=== PATIENT | female | born 1965 | race Caucasian/White ===

== ENCOUNTER 2017-11-01 15:48 | Emergency (ER) | payer MEDICARE, OTHER ==
[~2017-11-01] VITALS: Ht 167.6 cm; Wt 68.0 kg
[~2017-11-01 15:48] MED LIST: ALBU90OI INH; AMOCLA400S PO; ASPI325EC PO; ATOR40TA PO; Ativan1 MG PO; Augmentin 875-1 EACH PO; Augmentin Xr 11 EACH PO; BENTYL10 MG PO; BENTYL20 MG PO; BENZ100A PO; BIRTH CONTROL; CHOL10002; CHOL10002 PO; CIPR500 PO; CLOP75 PO; CODGUAEL PO; CRUTCH USE; CYCL10; CYPR4 PO; DEPAKOTE; DESL5; DESL5 PO; DIAZ5 PO; DICMIS75EC; DICMIS75EC PO; DOXY100 PO; ESCI10 PO; ESCI20 PO; ESOM20; ESOM20 PO; FINA5 PO; FURO20; FURO20 PO; Flomax0.4 MG PO; GUAI600T33 PO; GUAPHELA; HYDACE10B PO; HYDACE5 PO; HYDR1TAB94 PO; KLOR-CON SPRIN10 MEQ PO; LANS15EC PO; LEVSOD50 PO; LO OVRAL; LO OVRAL BCP PO; LO OVRAL PO; LONG ACTING NA120 MG PO; LORA1 PO; MECL12.5 PO; META800 PO; MINO2.5 PO; MUCINEX; NAPR500 PO; NAPR550 PO; Norco 10-325 T1 EACH PO; OMEP20ER PO; OMEP40CA12 PO; ONDA4 PO; ONDA8 PO; ONDA8ODT MM; OXYACE5T PO; OXYC10ER PO; OXYC1TAB11 PO; OXYC5 PO; POTA10T PO; POTCHL10ER PO; POTCHL20ER PO; PROM25 PO; PROM25S PR; PROMETHAZINE; PSEU120ER PO; Percocet 5-3251 EACH PO; Prilosec Otc20 MG PO; QUIN324 PO; Qualaquin324 MG PO; ROBITUSSIN NIG118 ML PO; RXLORA1 PO; RXMETA800 PO; RXNAPNA550 PO; SACC250C; SCOPTP TOP; SPIR50 PO; SUDAFED 12-HOU120 MG; TOPI100; TOPI100 PO; TOPI25 PO; TOPI50 PO; TRAZ100 PO; VITB100; Ventolin/Prove6.7 GM; ZOFRAN; Zofran Odt4 MG PO; [UNRECOGNIZED DRUG - OTHER]; [UNRECOGNIZED DRUG - OTHER]; cryselle
[2017-11-01 16:47] LABS: Source, Urine Clean Catch
[2017-11-01 16:54] LABS: Appearance, Urine Clear (Clear); Bilirubin, Urine Neg (Neg); Blood, Urine Neg (Neg); Color, Urine Yellow (P-Yellow); Glucose Qualitative, Urine Neg (Neg); Ketones, Urine Neg (Neg); Leukocyte Esterase, Urine Neg (Neg); Nitrite, Urine Neg (Neg); Protein, Urine Neg (Neg); Urobilinogen, Urine NORM (Normal); pH, Urine 6.5 (5.0-8.0)
[2017-11-01 17:01] LABS: BASOPHILS ABSOLUTE AUTO 0.02 K/mm3 (0.00-0.23); BASOPHILS PERCENT AUTO 0 % (0-2); EOSINOPHILS ABSOLUTE AUTO 0.17 K/mm3 (0.00-0.68); EOSINOPHILS PERCENT AUTO 2 % (0-6); Hemoglobin 13.8 g/dL (11.5-16.0); IMMATURE GRAN ABSOLUTE AUTO 0.01 K/mm3 (0.00-0.10); IMMATURE GRAN PERCENT AUTO 0 % (0-1); LYMPHOCYTES PERCENT AUTO 25 % (21-46); MONOCYTES PERCENT AUTO 7 % (4-13); Mean Corpuscular HGB 30.9 pg (26.0-34.0); Mean Corpuscular HGB Conc 32.9 g/dL (31.5-36.5); Mean Corpuscular Volume 94 fL (80-100); NEUTROPHILS ABSOLUTE AUTO 4.85 K/mm3 (1.96-9.15); NEUTROPHILS PERCENT AUTO 66 % (41-73); Platelet Count 297 K/mm3 (150-400); RDW Coefficient Variation 13.3 % (11.7-14.2); RDW Standard Deviation 46.3 fL (35.1-46.3); Red Blood Cell Count 4.46 M/mm3 (3.80-5.20); White Blood Cell Count 7.35 K/mm3 (4.00-11.30)
[2017-11-01 17:19] LABS: Albumin, Blood 3.4 g/dL (3.4-5.0); Bilirubin, Total 0.3 mg/dL (0.1-1.0); Bun/Creatinine Ratio 7.9 (12.0-20.0); Calcium, Blood 8.7 mg/dL (8.5-10.1); Creatinine, Blood 1.4 mg/dL (0.40-1.00); Globulin, Blood 3.3 g/dL (2.2-4.0); Total Protein, Blood 6.7 g/dL (6.4-8.2)
[2017-11-01] MEDS ORDERED: POTCHL20ER PO (18:43)
[2017-11-01] MEDS ORDERED: DIAZ2 PO (18:43)
[2017-11-04] MEDS ORDERED: ELIQUIS2.5 MG PO (11:09)
[2017-11-04] MEDS ORDERED: GUAI600T33 PO (20:04)
[2017-11-07] MEDS ORDERED: MINO2.5 PO (10:08)
== END 2017-11-01 19:32 | disposition home or self-care (01) ==
LOC: ER 15:48
PROVIDERS: Emergency Medicine
DX: J32.9 Chronic sinusitis, unspecified (principal); R42 Dizziness and giddiness; Z88.2 Allergy status to sulfonamides; Z88.1 Allergy status to other antibiotic agents; Z88.6 Allergy status to analgesic agent; Z79.899 Other long term (current) drug therapy; Z79.891 Long term (current) use of opiate analgesic; E03.9 Hypothyroidism, unspecified
CPT/HCPCS: 36415; 80053; 81003; 85025; 93005; 93010; 96361; 96374; 99283; J1100; J7030

== ENCOUNTER 2017-12-04 16:18 | Emergency (ER) | payer MEDICARE ==
[~2017-12-04] VITALS: Ht 167.6 cm; Wt 65.8 kg
[~2017-12-04 16:18] MED LIST changes: +DIAZ2 PO; +ELIQUIS2.5 MG PO
[2017-12-04 17:05] LABS: BASOPHILS ABSOLUTE AUTO 0.02 K/mm3 (0.00-0.23); BASOPHILS PERCENT AUTO 0 % (0-2); EOSINOPHILS ABSOLUTE AUTO 0.12 K/mm3 (0.00-0.68); EOSINOPHILS PERCENT AUTO 2 % (0-6); Hematocrit 44.7 % (33.0-51.0); Hemoglobin 14.8 g/dL (11.5-16.0); IMMATURE GRAN ABSOLUTE AUTO 0.01 K/mm3 (0.00-0.10); IMMATURE GRAN PERCENT AUTO 0 % (0-1); LYMPHOCYTES PERCENT AUTO 26 % (21-46); MONOCYTES ABSOLUTE AUTO 0.43 K/mm3 (0.16-1.47); MONOCYTES PERCENT AUTO 6 % (4-13); Mean Corpuscular HGB 31.4 pg (26.0-34.0); Mean Corpuscular HGB Conc 33.1 g/dL (31.5-36.5); Mean Corpuscular Volume 95 fL (80-100); Mean Platelet Volume 10.2 fL (9.1-12.4); NEUTROPHILS ABSOLUTE AUTO 4.55 K/mm3 (1.96-9.15); NEUTROPHILS PERCENT AUTO 66 % (41-73); Platelet Count 271 K/mm3 (150-400); RDW Coefficient Variation 13.5 % (11.7-14.2); RDW Standard Deviation 47.4 fL (35.1-46.3); Red Blood Cell Count 4.72 M/mm3 (3.80-5.20); White Blood Cell Count 6.93 K/mm3 (4.00-11.30)
[2017-12-04 17:27] LABS: Albumin, Blood 3.9 g/dL (3.4-5.0); Albumin/Globulin Ratio 1.1 (0.8-1.8); Bilirubin, Total 0.5 mg/dL (0.1-1.0); Bun/Creatinine Ratio 12.3 (12.0-20.0); Calcium, Blood 9.4 mg/dL (8.5-10.1); Creatinine, Blood 1.14 mg/dL (0.40-1.00); Globulin, Blood 3.5 g/dL (2.2-4.0); Potassium, Blood 3.1 mmol/L (3.5-5.5); Total Protein, Blood 7.4 g/dL (6.4-8.2)
== END 2017-12-04 21:20 | disposition home or self-care (01) ==
LOC: ER 16:18
PROVIDERS: Emergency Medicine
DX: E86.0 Dehydration (principal); K29.70 Gastritis, unspecified, without bleeding; F43.9 Reaction to severe stress, unspecified; Z88.2 Allergy status to sulfonamides; Z88.1 Allergy status to other antibiotic agents; Z88.6 Allergy status to analgesic agent; Z79.899 Other long term (current) drug therapy; E03.9 Hypothyroidism, unspecified
CPT/HCPCS: 36415; 80053; 83690; 85025; 93005; 93010; J0780; J3010; J7030

== ENCOUNTER 2017-12-31 19:21 | Emergency (ER) | payer MEDICARE, OTHER ==
[~2017-12-31] VITALS: Ht 162.6 cm; Wt 68.0 kg
== END 2017-12-31 20:15 | disposition home or self-care (01) ==
LOC: ER 19:21
DX: Z00.00 Encounter for general adult medical examination without abnormal findings (principal); I48.91 Unspecified atrial fibrillation; Z79.899 Other long term (current) drug therapy
CPT/HCPCS: 93005; 93010; 99283

== ENCOUNTER 2018-01-24 21:30 | Emergency (ER) | payer MEDICARE, OTHER ==
[~2018-01-24] VITALS: Ht 167.6 cm; Wt 63.5 kg
[2018-01-24 21:52] LABS: BASOPHILS ABSOLUTE AUTO 0.03 K/mm3 (0.00-0.23); BASOPHILS PERCENT AUTO 0 % (0-2); EOSINOPHILS PERCENT AUTO 0 % (0-6); Hemoglobin 15.5 g/dL (11.5-16.0); IMMATURE GRAN ABSOLUTE AUTO 0.06 K/mm3 (0.00-0.10); IMMATURE GRAN PERCENT AUTO 0 % (0-1); LYMPHOCYTES ABSOLUTE AUTO 0.67 K/mm3 (0.84-5.20); LYMPHOCYTES PERCENT AUTO 5 % (21-46); MONOCYTES ABSOLUTE AUTO 0.43 K/mm3 (0.16-1.47); MONOCYTES PERCENT AUTO 3 % (4-13); Mean Corpuscular HGB 32.2 pg (26.0-34.0); Mean Corpuscular HGB Conc 33.7 g/dL (31.5-36.5); Mean Corpuscular Volume 96 fL (80-100); Mean Platelet Volume 10.3 fL (9.1-12.4); NEUTROPHILS PERCENT AUTO 92 % (41-73); Platelet Count 261 K/mm3 (150-400); RDW Coefficient Variation 14.2 % (11.7-14.2); RDW Standard Deviation 50.4 fL (35.1-46.3); Red Blood Cell Count 4.81 M/mm3 (3.80-5.20); White Blood Cell Count 13.99 K/mm3 (4.00-11.30)
[2018-01-24 22:10] LABS: Albumin, Blood 3.5 g/dL (3.4-5.0); Bilirubin, Total 0.4 mg/dL (0.1-1.0); Bun/Creatinine Ratio 11.8 (12.0-20.0); Calcium, Blood 8.9 mg/dL (8.5-10.1); Creatinine, Blood 1.1 mg/dL (0.40-1.00); Globulin, Blood 3.6 g/dL (2.2-4.0); Total Protein, Blood 7.1 g/dL (6.4-8.2)
[2018-01-24] MEDS ORDERED: Omeprazole20 M1 PO (23:02)
[2018-01-24] MEDS ORDERED: DESL5 PO (23:02)
[2018-01-25 02:52] LABS: Source, Urine Clean Catch
[2018-01-25 02:53] LABS: Adenovirus F 40/41 Not Detected (NOT DETECT); Astrovirus Not Detected (NOT DETECT); Cryptosporidium Not Detected (NOT DETECT); Cyclospora Cayetanensis Not Detected (NOT DETECT); E. Coli O157 Not Detected (NOT DETECT); Entamoeba Histolytica Not Detected (NOT DETECT); Enteroaggregative E. coli-EAEC Not Detected (NOT DETECT); Enteropathogenic E. coli-EPEC Not Detected (NOT DETECT); Enterotoxigenic E. coli-ETEC Not Detected (NOT DETECT); Giardia Lamblia Not Detected (NOT DETECT); Norovirus GI/GII Not Detected (NOT DETECT); Plesiomonas Shigelloides Not Detected (NOT DETECT); Rotavirus A Not Detected (NOT DETECT); Salmonella Sp Not Detected (NOT DETECT); Sapovirus Not Detected (NOT DETECT); Shiga Toxin-prod E. coli-STEC Not Detected (NOT DETECT); Shigella/Enteroin E. coli-EIEC Not Detected (NOT DETECT); Vibrio Cholerae Not Detected (NOT DETECT); Vibrio Sp Not Detected (NOT DETECT); Yersinia Enterocolitica Not Detected (NOT DETECT)
[2018-01-25 02:55] LABS: Bilirubin, Urine Neg (Neg); Blood, Urine Neg (Neg); Glucose Qualitative, Urine Neg (Neg); Ketones, Urine Neg (Neg); Leukocyte Esterase, Urine 1+ (Neg); Nitrite, Urine Neg (Neg); Protein, Urine Neg (Neg); Urobilinogen, Urine NORM (Normal)
[2018-01-25 02:58] LABS: Appearance, Urine Clear (Clear); Color, Urine Yellow (P-Yellow)
[2018-01-25 03:04] LABS: White Blood Cells, Urine 0-2 /hpf (0-5)
[2018-01-25 03:05] LABS: Amorphous Light ([, 0-Heavy]); Bacteria Few /hpf; Mucus Light ([, 0-Heavy]); Red Blood Cells, Urine Not Seen /hpf (0-2); Squamous Epithelial Cells Few /hpf (Few)
[2018-01-25] MEDS ORDERED: Ativan1 MG SL (03:07)
[2018-01-25 04:21] LABS: Campylobacter Sp Detected (NOT DETECT)
== END 2018-01-25 03:16 | disposition home or self-care (01) ==
LOC: ER 21:30
PROVIDERS: Emergency Medicine
DX: R19.7 Diarrhea, unspecified (principal); E87.6 Hypokalemia; R11.2 Nausea with vomiting, unspecified; G40.909 Epilepsy, unspecified, not intractable, without status epilepticus; E03.9 Hypothyroidism, unspecified; Z88.2 Allergy status to sulfonamides; Z88.1 Allergy status to other antibiotic agents; Z88.5 Allergy status to narcotic agent; Z79.899 Other long term (current) drug therapy
CPT/HCPCS: 36415; 80053; 81001; 83690; 85025; 87086; 87507; 93005; 93010; 96361; 96374; 99284-25; J2405; J7030; J7120

== ENCOUNTER → 2018-04-14 | Outpatient (CLI) | payer MEDICARE, OTHER ==
[~2018-04-14] MED LIST changes: +Ativan1 MG SL; +Omeprazole20 M1 PO
== END | disposition home or self-care (01) ==
LOC: LAB 22:00 → LAB SHORT 22:00
DX: A09 Infectious gastroenteritis and colitis, unspecified (principal)
CPT/HCPCS: 87015; 87045; 87046; 87205; 87493; 87899

== ENCOUNTER 2018-07-27 21:21 | Emergency (ER) | payer MEDICARE, OTHER ==
[~2018-07-27] VITALS: Ht 170.2 cm; Wt 68.0 kg
[2018-07-27] MEDS ORDERED: ERYT1OIN RIGHTEYE (23:37)
[2018-07-27] MEDS ORDERED: METO50 PO (23:48)
[2018-07-28] MEDS ORDERED: ERYT1OIN LEFTEYE (00:11)
== END 2018-07-28 00:22 | disposition home or self-care (01) ==
LOC: ER 21:21
DX: S05.02XA Injury of conjunctiva and corneal abrasion without foreign body, left eye, initial encounter (principal); E03.9 Hypothyroidism, unspecified; Z79.899 Other long term (current) drug therapy; Z88.2 Allergy status to sulfonamides; Z88.8 Allergy status to other drugs, medicaments and biological substances; X58.XXXA Exposure to other specified factors, initial encounter
CPT/HCPCS: 99283

== ENCOUNTER 2018-10-14 16:04 | Observation (INO) | payer MEDICARE, OTHER ==
[~2018-10-14] VITALS: Ht 170.2 cm; Wt 78.0 kg
[~2018-10-14 16:04] MED LIST changes: +ERYT1OIN LEFTEYE; +ERYT1OIN RIGHTEYE; +METO50 PO
[2018-10-14 16:46] LABS: BASOPHILS ABSOLUTE AUTO 0.04 K/mm3 (0.00-0.23); BASOPHILS PERCENT AUTO 1 % (0-2); EOSINOPHILS ABSOLUTE AUTO 0.25 K/mm3 (0.00-0.68); EOSINOPHILS PERCENT AUTO 6 % (0-6); Hemoglobin 14.3 g/dL (11.5-16.0); IMMATURE GRAN PERCENT AUTO 0 % (0-1); LYMPHOCYTES ABSOLUTE AUTO 1.21 K/mm3 (0.84-5.20); LYMPHOCYTES PERCENT AUTO 28 % (21-46); MONOCYTES ABSOLUTE AUTO 0.44 K/mm3 (0.16-1.47); MONOCYTES PERCENT AUTO 10 % (4-13); Mean Corpuscular HGB 31.1 pg (26.0-34.0); Mean Corpuscular HGB Conc 32.5 g/dL (31.5-36.5); Mean Corpuscular Volume 96 fL (80-100); NEUTROPHILS ABSOLUTE AUTO 2.45 K/mm3 (1.96-9.15); NEUTROPHILS PERCENT AUTO 56 % (41-73); Platelet Count 254 K/mm3 (150-400); RDW Standard Deviation 45.8 fL (35.1-46.3); White Blood Cell Count 4.39 K/mm3 (4.00-11.30)
[2018-10-14 16:55] LABS: Calcium, Ionized (POC) 1.18 mmol/L (1.10-1.46); Chloride (POC) 103 mmol/L (98-108); Creatinine (POC) 1.1 mg/dL (0.6-1.0); Glucose (ISTAT POC) 185 mg/dL (70-99); Hemoglobin (POC) 12.6 g/dL (12.0-16.0); Potassium (POC) 3.4 mmol/L (3.5-5.5); Sodium (POC) 139 mmol/L (135-148); Total CO2 (POC) 24 mmol/L (21-32)
[2018-10-14 17:47] LABS: Alanine Aminotransfer (ALT/SGP 26 U/L (12-78); Albumin, Blood 3.1 g/dL (3.4-5.0); Alk Phos 73 U/L (50-136); Anion Gap 6 mmol/L (6-16); Aspartate Aminotrans (AST/SGOT 16 U/L (12-37); Bilirubin, Total 0.3 mg/dL (0.1-1.0); Blood Urea Nitrogen 14 mg/dL (8-24); Bun/Creatinine Ratio 14.1 (12.0-20.0); CO2, Blood 26 mmol/L (21-32); Calcium, Blood 8.6 mg/dL (8.5-10.1); Chloride, Blood 105 mmol/L (98-108); Creatinine, Blood 0.99 mg/dL (0.40-1.00); Ethanol (Alcohol), Blood, Med <3 mg/dL; Globulin, Blood 3.2 g/dL (2.2-4.0); Glomerular Filtration Rate >60 (60-); Glucose, Blood 91 mg/dL (70-99); Potassium, Blood 3.4 mmol/L (3.5-5.5); Sodium, Blood 137 mmol/L (136-145); Total Protein, Blood 6.3 g/dL (6.4-8.2)
[2018-10-14] MEDS ORDERED: OMEPRAZOLE MAGN20 MG PO (17:49)
[2018-10-14] MEDS ORDERED: Sudogest120 MG PO (17:49)
[2018-10-14] MEDS ORDERED: ELIQUIS5 MG PO (17:49)
[2018-10-14 19:04] LABS: International Normalized Ratio 0.96
[2018-10-14 19:10] LABS: Prothrombin Time Results 10.2 Sec (9.7-11.5)
[2018-10-14 20:06] LABS: Source, Urine Catheter
[2018-10-14 20:09] LABS: Bilirubin, Urine Neg (Neg); Blood, Urine Neg (Neg); Glucose Qualitative, Urine Neg (Neg); Ketones, Urine Neg (Neg); Leukocyte Esterase, Urine Neg (Neg); Nitrite, Urine Neg (Neg); Protein, Urine Neg (Neg); Urobilinogen, Urine NORM (Normal)
[2018-10-14 20:14] LABS: Appearance, Urine Clear (Clear); Color, Urine Yellow (P-Yellow)
[2018-10-14 20:19] LABS: U Amphetamine Screen Not Detected; U Barbituate Screen Not Detected; U Benzodiazapine Screen Not Detected; U Buprenorphine Screen Not Detected; U Cannabinoids Screen Not Detected; U Cocaine Screen Not Detected; U Methadone Screen Not Detected; U Methamphetamine Screen Not Detected; U Opiates Screen Not Detected; U Oxycodone Screen Not Detected; U Phencyclidine Screen Not Detected; U Propoxyphene Screen Not Detected
--- NOTE | 2018-10-15 04:05 | NUR ---
SHIFT SUMMARY RECEIVED REPORT FROM ED RN. PATIENT ARRIVED TO MEDICAL UNIT @ 599. TRANSFER ASSISTANCE REQUIRED FROM STRETCHER TO BED. A/O, ABLE TO MAKE NEEDS KNOWN. EXPRESSIVE APHASIA, HOWEVER ABLE TO WRITE DOWN THOUGHTS. STATED ABANDONS HER AT TIMES; JUST TAKES OFF DAYS AT A TIME. NO MONIES TO FEED SELF/ANIMALS. CONCERNED FOR THE WELFARE OF HER ANIMALS; STATES WORRIED WILL HURT THEM. BECAME VISIBLY UPSET WHEN TALKING ABOUT/TO HER ; DENIED NEED FOR RESTRICTION OF VISITATION. STATED HADN'T HAD ACTUAL FOOD SINCE Tuesday10/11/18. UP TO BEDSIDE COMMODE WITH MOD DIFFICULTY R/T WEAKEND R LEG. EQUAL HISTORY CARD CLERK BILATERALLY. SLIGHT FACIAL DROOP TO THE L SIDE. RUNNING 100 ML/HR OF NS TO 20G IN LAC WITHOUT COMPLICATION. TELE RUNNING NSR IN 70'S PER PCU FRONT MAN. SWALLOW TEST COMPLETE; ABLE TO SWALLOW SMALL SIPS OF WATER WITHOUT ANY SIGNS OF DISTRESS. MEDICATION PASS COMPLETED WITHOUT COMPLICATION; HOB @ 90 DEGREES. APPEARED TO SLEEP AFTER ADMISSION PROCESS COMPLETE. BED REMAINS IN LOWEST POSITION; ALARM ON. CALL LIGHT AND BELONGINGS WITHIN REACH. WCTM. REPORT TO ONCOMING RN.
[2018-10-15 05:16] LABS: BASOPHILS ABSOLUTE AUTO 0.04 K/mm3 (0.00-0.23); BASOPHILS PERCENT AUTO 1 % (0-2); EOSINOPHILS ABSOLUTE AUTO 0.33 K/mm3 (0.00-0.68); EOSINOPHILS PERCENT AUTO 6 % (0-6); Hematocrit 41.4 % (33.0-51.0); Hemoglobin 13.2 g/dL (11.5-16.0); IMMATURE GRAN ABSOLUTE AUTO 0.01 K/mm3 (0.00-0.10); IMMATURE GRAN PERCENT AUTO 0 % (0-1); LYMPHOCYTES ABSOLUTE AUTO 1.82 K/mm3 (0.84-5.20); LYMPHOCYTES PERCENT AUTO 34 % (21-46); MONOCYTES ABSOLUTE AUTO 0.54 K/mm3 (0.16-1.47); MONOCYTES PERCENT AUTO 10 % (4-13); Mean Corpuscular HGB 31.1 pg (26.0-34.0); Mean Corpuscular HGB Conc 31.9 g/dL (31.5-36.5); Mean Corpuscular Volume 98 fL (80-100); Mean Platelet Volume 10.4 fL (9.1-12.4); NEUTROPHILS ABSOLUTE AUTO 2.65 K/mm3 (1.96-9.15); NEUTROPHILS PERCENT AUTO 49 % (41-73); Platelet Count 235 K/mm3 (150-400); RDW Standard Deviation 46.5 fL (35.1-46.3); Red Blood Cell Count 4.24 M/mm3 (3.80-5.20); White Blood Cell Count 5.39 K/mm3 (4.00-11.30)
[2018-10-15 05:36] LABS: Alanine Aminotransfer (ALT/SGP 28 U/L (12-78); Albumin, Blood 3.3 g/dL (3.4-5.0); Albumin/Globulin Ratio 1.1 (0.8-1.8); Alk Phos 70 U/L (50-136); Anion Gap 8 mmol/L (6-16); Aspartate Aminotrans (AST/SGOT 17 U/L (12-37); Bilirubin, Total 0.4 mg/dL (0.1-1.0); Blood Urea Nitrogen 12 mg/dL (8-24); Bun/Creatinine Ratio 13.3 (12.0-20.0); CO2, Blood 25 mmol/L (21-32); Calcium, Blood 8.6 mg/dL (8.5-10.1); Chloride, Blood 110 mmol/L (98-108); Glomerular Filtration Rate >60 (60-); Glucose, Blood 92 mg/dL (70-99); Potassium, Blood 3.3 mmol/L (3.5-5.5); Sodium, Blood 143 mmol/L (136-145); Total Protein, Blood 6.3 g/dL (6.4-8.2)
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
--- NOTE | 2018-10-15 18:27 | NUR ---
PT HAS BEEN SLEEPING SOUNDLY T/O THE SHIFT. IVF RUNNING, NOT RESPONDING TO STAFF OR SPOUSE AT THE BEDSIDE. STAFF WOKE THE PT AFTE BLADDER SCAN SHOWED 399ML IN HER BLADDER. PT NODDED THAT SHE WANTED TO GO TO THE BATHROOM. WHEN TWO STAFF TURNED HER SHE BEGAN TO HAVE A SMALL TREMMOR IN ALL OF HER EXTREMITIES, STAFF PLACED HER BACK IN HER BED AND THEY STOPPED IMMEDIATELY. DURRING THE EVENT PT WALKED INTO THE ROOM AND SAID "SHE IS HAVING A SEIZURE. SHE NEEDS HER ATIVAN." MOMENTS AFTER THE PT WAS AT REST SHE OPENED HER EYES AND BEGAN TO CRY AND SPEAK IN SLURRED SPEECH WITH A LEFT SIDED FACIAL DROOP. OBTAINED A SET OF VITALS. THE TREMMORS DID NOT PRESENT LIKE A SEIZURE. NOTIFIED OF THE INCIDENT. PT WOKE WHE RN SPOKE TO HER AND INDICATED THAT SHE NEEDED TO USE THE COMODE. PT GOT HERSELF TO THE EOB WITH MINIMAL ASSISTANCE, STOOD (WEAKLY) UNDER HER OWN POWER AND STUMBLE TURNED TO THE COMODE, SHE WAS ABLE TO CONTROL HER DECENT TO SIT ON THE COMODE. PT NEEDED SOME ASSISTANCE TO PEE WATER TURNED ON TO STIMULATE. PT URINATED 600ML OUT IN THE COMODE. THEN PT WAS MINIMALLY ASSISTED BY TWO STAFF BACK TO HER BED. ONCE IN BED PT WAS INSTRUCTED TO USE HER HANDS TO LIFT HERSELF AND SCOOT OVER IN THE BED, SHE DID THIS WITH LITTLE DIFFICULTY. PT WRITING VIGOROUSLY ABOUT HER HEAD "FEELING FUNNY" DECLINED TYLENOL. DR QUEEN AWARE. PT THREW HER ENSURE AT HER THEN SHE CALLED HIM ON THE PHONE WHEN THIS RN WALKED IN SHE ASKED HIM TO "COME BACK!" PT SPOUSE CAME RIGHT BACK. PT ATE SOME OF HER CLEAR LIQUID TRAY AND WANTED REGULAR FOOD. RECIEVED AN ORDER FOR REGULAR DIET AND PLACED A TRAY NOW REQUEST.
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
--- NOTE | 2018-10-16 06:35 | NUR ---
0450 VEWS SCORE OF 3. TWIST MAKER AWARE. WILL RE-CHECK VITALS X1 HR.
--- NOTE | 2018-10-16 06:36 | NUR ---
0545 VS RE-CHECKED. NO VEWS SCORE OBTAINED. TM.
[2018-10-16] MEDS ORDERED: MIRT30 PO (16:17)
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
--- NOTE | 2018-10-16 16:52 | NUR ---
PT AOX4 AND COOPERATIVE OF CARE. PT HAS BEEN INDEPENDENT IN ROOM AND SEEMS READY TO GO HOME. PT HAD ALL PAPERS REVIEWED AND EDUCATIONAL MATERIAL SENT. PT STATES SHE IS DRIVING HERSELF HOME. PT ESCORTED TO N ENTRANCE VIA WHEEL CHAIR. NO DISTRESS NOTED. EARLIER TODAY HAD STOPPED IN. PT HAD STARTED YELLING AT HIM IN ROOM AND HAD LEFT.
== END 2018-10-16 16:52 | disposition home or self-care (01) ==
LOC: ER 16:04 → MEDS 16:05 → ENPENDDIS 10-16 13:49 → MEDS 10-16 16:52
PROVIDERS: Emergency Medicine; ADMIT Internal Medicine
DX: I63.311 Cerebral infarction due to thrombosis of right middle cerebral artery (principal); R47.01 Aphasia; G81.91 Hemiplegia, unspecified affecting right dominant side; E87.6 Hypokalemia; E03.9 Hypothyroidism, unspecified; G40.909 Epilepsy, unspecified, not intractable, without status epilepticus; J45.909 Unspecified asthma, uncomplicated; I12.9 Hypertensive chronic kidney disease with stage 1 through stage 4 chronic kidney disease, or unspecified chronic kidney disease; N18.3 Chronic kidney disease, stage 3 (moderate); Z79.899 Other long term (current) drug therapy; Z88.2 Allergy status to sulfonamides; Z88.1 Allergy status to other antibiotic agents; Z88.6 Allergy status to analgesic agent; Z87.19 Personal history of other diseases of the digestive system
CPT/HCPCS: 36415; 70450; 70496; 70498; 70551; 80047; 80053; 81003; 82947; 85014; 85025; 85610; 85730; 92523; 93005; 93010; 96361; 96372; 96374-59; 96375-59; 97162; 97530; 99285-25; G0378; G0480; J1650; J2060; J2310; J2405; J7030; Q9967

== ENCOUNTER 2019-01-27 06:54 | Emergency (ER) | payer MEDICARE, OTHER ==
[~2019-01-27] VITALS: Ht 172.7 cm; Wt 97.5 kg
[~2019-01-27 06:54] MED LIST changes: +ELIQUIS5 MG PO; +MIRT30 PO; +OMEPRAZOLE MAGN20 MG PO; +Sudogest120 MG PO
[2019-01-27] MEDS ORDERED: ATOR40TA PO (07:26)
[2019-01-27] MEDS ORDERED: LEVSOD50 PO (07:27)
[2019-01-27] MEDS ORDERED: TOPIRAMATE ER200 MG PO (07:27)
[2019-01-27] MEDS ORDERED: MINO2.5 PO (07:28)
[2019-01-27 07:44] LABS: BASOPHILS ABSOLUTE AUTO 0.06 K/mm3 (0.00-0.23); BASOPHILS PERCENT AUTO 1 % (0-2); EOSINOPHILS ABSOLUTE AUTO 0.41 K/mm3 (0.00-0.68); EOSINOPHILS PERCENT AUTO 5 % (0-6); Hematocrit 42.4 % (33.0-51.0); Hemoglobin 13.4 g/dL (11.5-16.0); IMMATURE GRAN ABSOLUTE AUTO 0.03 K/mm3 (0.00-0.10); IMMATURE GRAN PERCENT AUTO 0 % (0-1); LYMPHOCYTES ABSOLUTE AUTO 1.77 K/mm3 (0.84-5.20); LYMPHOCYTES PERCENT AUTO 23 % (21-46); MONOCYTES ABSOLUTE AUTO 0.63 K/mm3 (0.16-1.47); MONOCYTES PERCENT AUTO 8 % (4-13); Mean Corpuscular HGB 31.5 pg (26.0-34.0); Mean Corpuscular HGB Conc 31.6 g/dL (31.5-36.5); Mean Corpuscular Volume 100 fL (80-100); Mean Platelet Volume 10.6 fL (9.1-12.4); NEUTROPHILS ABSOLUTE AUTO 4.87 K/mm3 (1.96-9.15); NEUTROPHILS PERCENT AUTO 63 % (41-73); Platelet Count 309 K/mm3 (150-400); RDW Coefficient Variation 14.4 % (11.7-14.2); Red Blood Cell Count 4.25 M/mm3 (3.80-5.20); White Blood Cell Count 7.77 K/mm3 (4.00-11.30)
[2019-01-27 08:13] LABS: Alanine Aminotransfer (ALT/SGP 29 U/L (12-78); Albumin, Blood 3.5 g/dL (3.4-5.0); Alk Phos 105 U/L (50-136); Anion Gap 6 mmol/L (6-16); Aspartate Aminotrans (AST/SGOT 16 U/L (12-37); Bilirubin, Total 0.3 mg/dL (0.1-1.0); Blood Urea Nitrogen 18 mg/dL (8-24); Bun/Creatinine Ratio 16.2 (12.0-20.0); CO2, Blood 25 mmol/L (21-32); Calcium, Blood 8.9 mg/dL (8.5-10.1); Chloride, Blood 111 mmol/L (98-108); Creatinine, Blood 1.11 mg/dL (0.40-1.00); Globulin, Blood 3.4 g/dL (2.2-4.0); Glomerular Filtration Rate 54 (60-); Glucose, Blood 52 mg/dL (70-99); Potassium, Blood 3.5 mmol/L (3.5-5.5); Sodium, Blood 142 mmol/L (136-145); Total Protein, Blood 6.9 g/dL (6.4-8.2); Troponin I <0.015 ng/mL (0.000-0.040)
== END 2019-01-27 10:31 | disposition home or self-care (01) ==
LOC: ER 06:54
PROVIDERS: Emergency Medicine
DX: S80.02XA Contusion of left knee, initial encounter (principal); S80.01XA Contusion of right knee, initial encounter; R07.9 Chest pain, unspecified; Y04.8XXA Assault by other bodily force, initial encounter; E03.9 Hypothyroidism, unspecified; Z88.1 Allergy status to other antibiotic agents; Z88.6 Allergy status to analgesic agent; Z88.2 Allergy status to sulfonamides; Z79.899 Other long term (current) drug therapy
CPT/HCPCS: 36415; 71046; 80053; 83690; 84484; 85025; 93005; 93010; 99285-25

== ENCOUNTER 2019-05-01 12:12 | Emergency (ER) | payer MEDICARE, OTHER ==
[~2019-05-01] VITALS: Ht 167.6 cm; Wt 74.8 kg
[~2019-05-01 12:12] MED LIST changes: +TOPIRAMATE ER200 MG PO
[2019-05-01] MEDS ORDERED: Voltaren100 GM TOP (14:38)
[2019-05-01] MEDS ORDERED: Robaxin-750750 MG PO (14:38)
[2019-05-01] MEDS ORDERED: K-Dur20 MEQ PO (14:59)
== END 2019-05-01 15:13 | disposition home or self-care (01) ==
LOC: ER 12:12
DX: M54.5 Low back pain (principal); G89.29 Other chronic pain; K21.9 Gastro-esophageal reflux disease without esophagitis; G40.909 Epilepsy, unspecified, not intractable, without status epilepticus; I12.9 Hypertensive chronic kidney disease with stage 1 through stage 4 chronic kidney disease, or unspecified chronic kidney disease; N18.3 Chronic kidney disease, stage 3 (moderate); E03.9 Hypothyroidism, unspecified; Z86.73 Personal history of transient ischemic attack (TIA), and cerebral infarction without residual deficits; Z88.2 Allergy status to sulfonamides; Z88.1 Allergy status to other antibiotic agents; Z88.8 Allergy status to other drugs, medicaments and biological substances; Z79.899 Other long term (current) drug therapy; Z79.01 Long term (current) use of anticoagulants
CPT/HCPCS: 72100; 99283-25

== ENCOUNTER → 2019-05-22 | Outpatient (CLI) | payer MEDICARE, OTHER ==
[~2019-05-22] MED LIST changes: +K-Dur20 MEQ PO; +Robaxin-750750 MG PO; +Voltaren100 GM TOP
[2019-05-24 15:07] LABS: HPV 16 Negative (Negative); HPV 18 Negative (Negative); HPV OTHER HR TYPES Negative (Negative)
== END | disposition home or self-care (01) ==
LOC: LAB SHORT 17:41 → LAB 17:41
PROVIDERS: Obstetrics & Gynecology Gynecology
DX: Z91.89 Other specified personal risk factors, not elsewhere classified (principal)
CPT/HCPCS: 87624; G0123

== ENCOUNTER 2019-11-19 14:20 | Emergency (ER) | payer MEDICARE, OTHER ==
[~2019-11-19] VITALS: Ht 165.1 cm; Wt 72.6 kg
[2019-11-19 15:05] LABS: BASOPHILS ABSOLUTE AUTO 0.03 K/mm3 (0.00-0.23); BASOPHILS PERCENT AUTO 1 % (0-2); EOSINOPHILS ABSOLUTE AUTO 0.27 K/mm3 (0.00-0.68); EOSINOPHILS PERCENT AUTO 4 % (0-6); Hematocrit 43.8 % (33.0-51.0); Hemoglobin 14.1 g/dL (11.5-16.0); IMMATURE GRAN ABSOLUTE AUTO 0.02 K/mm3 (0.00-0.10); IMMATURE GRAN PERCENT AUTO 0 % (0-1); LYMPHOCYTES PERCENT AUTO 28 % (21-46); MONOCYTES ABSOLUTE AUTO 0.51 K/mm3 (0.16-1.47); MONOCYTES PERCENT AUTO 8 % (4-13); Mean Corpuscular HGB 30.8 pg (26.0-34.0); Mean Corpuscular HGB Conc 32.2 g/dL (31.5-36.5); Mean Corpuscular Volume 96 fL (80-100); Mean Platelet Volume 11.2 fL (9.1-12.4); NEUTROPHILS ABSOLUTE AUTO 3.88 K/mm3 (1.96-9.15); NEUTROPHILS PERCENT AUTO 60 % (41-73); Platelet Count 288 K/mm3 (150-400); RDW Coefficient Variation 13.5 % (11.7-14.2); Red Blood Cell Count 4.58 M/mm3 (3.80-5.20); White Blood Cell Count 6.51 K/mm3 (4.00-11.30)
[2019-11-19] MEDS ORDERED: OMEPRAZOLE20 MG PO (15:08)
[2019-11-19] MEDS ORDERED: ATOR20 PO (15:08)
[2019-11-19] MEDS ORDERED: LEVSOD25 PO (15:08)
[2019-11-19] MEDS ORDERED: DESL5 PO (15:08)
[2019-11-19] MEDS ORDERED: TOPI100 PO (15:09)
[2019-11-19] MEDS ORDERED: VITAMIN D-32000 UNIT PO (15:09)
[2019-11-19] MEDS ORDERED: DIAZ5 PO (15:10)
[2019-11-19] MEDS ORDERED: BENTYL PO (15:10)
[2019-11-19] MEDS ORDERED: POTA10T PO (15:11)
[2019-11-19] MEDS ORDERED: OXYC10TA19 PO (15:11)
[2019-11-19] MEDS ORDERED: MOTION RELIEF25 MG PO (15:11)
[2019-11-19] MEDS ORDERED: ELIQUIS5 MG PO (15:11)
[2019-11-19] MEDS ORDERED: Florastor250 MG PO (15:11)
[2019-11-19] MEDS ORDERED: FURO20 PO (15:12)
[2019-11-19] MEDS ORDERED: METO50 PO (15:12)
[2019-11-19 15:19] LABS: International Normalized Ratio 1.04; Prothrombin Time Results 11.1 Sec (9.7-11.5)
[2019-11-19 15:29] LABS: Alanine Aminotransfer (ALT/SGP 25 U/L (12-78); Albumin, Blood 3.6 g/dL (3.4-5.0); Albumin/Globulin Ratio 0.9 (0.8-1.8); Alk Phos 110 U/L (50-136); Anion Gap 8 mmol/L (6-16); Aspartate Aminotrans (AST/SGOT 23 U/L (12-37); Bilirubin, Total 0.5 mg/dL (0.1-1.0); Blood Urea Nitrogen 10 mg/dL (8-24); Bun/Creatinine Ratio 10.2 (12.0-20.0); CO2, Blood 25 mmol/L (21-32); Calcium, Blood 8.9 mg/dL (8.5-10.1); Chloride, Blood 108 mmol/L (98-108); Creatinine, Blood 0.99 mg/dL (0.40-1.00); Glomerular Filtration Rate >60 (60-); Glucose, Blood 97 mg/dL (70-99); Potassium, Blood 3.4 mmol/L (3.5-5.5); Sodium, Blood 141 mmol/L (136-145); Total Protein, Blood 7.6 g/dL (6.4-8.2); Troponin I <0.015 ng/mL (0.000-0.040)
== END 2019-11-19 16:02 | disposition home or self-care (01) ==
LOC: ER 14:20
PROVIDERS: Physician Assistant
DX: R29.898 Other symptoms and signs involving the musculoskeletal system (principal); R51 Headache; K21.9 Gastro-esophageal reflux disease without esophagitis; G40.909 Epilepsy, unspecified, not intractable, without status epilepticus; Z86.73 Personal history of transient ischemic attack (TIA), and cerebral infarction without residual deficits; E03.9 Hypothyroidism, unspecified; J45.909 Unspecified asthma, uncomplicated; I12.9 Hypertensive chronic kidney disease with stage 1 through stage 4 chronic kidney disease, or unspecified chronic kidney disease; N18.3 Chronic kidney disease, stage 3 (moderate); I48.91 Unspecified atrial fibrillation; Z88.2 Allergy status to sulfonamides; Z88.1 Allergy status to other antibiotic agents; Z88.8 Allergy status to other drugs, medicaments and biological substances; Z79.899 Other long term (current) drug therapy
CPT/HCPCS: 36415; 70450; 80053; 84484; 85025; 85610; 93005; 93010; 99285-25